=== PATIENT | male | born 1995 | race Caucasian/White ===

== ENCOUNTER 2017-04-15 08:57 | Emergency (ER) | payer OTHER ==
[~2017-04-15] VITALS: Ht 167.6 cm; Wt 78.1 kg
[2017-04-15 09:58] VITALS: BP 126/61
== END 2017-04-15 09:58 | disposition home or self-care (01) ==
LOC: ED 08:57
DX: J01.90 Acute sinusitis, unspecified (principal)
CPT/HCPCS: J1885

== ENCOUNTER 2017-08-02 17:14 | Emergency (ER) | payer OTHER ==
[2017-08-02 17:16] VITALS: BP 130/77
== END 2017-08-02 18:20 | disposition home or self-care (01) ==
LOC: ED 17:14
DX: J02.9 Acute pharyngitis, unspecified (principal); R50.9 Fever, unspecified

== ENCOUNTER 2017-10-03 21:00 | Emergency (ER) | payer OTHER ==
[~2017-10-03] VITALS: Ht 170.2 cm; Wt 83.9 kg
[2017-10-03 21:09] VITALS: BP 137/100; Ht 170.2 cm; Wt 83.9 kg
== END 2017-10-04 00:57 | disposition home or self-care (01) ==
LOC: ED 21:00
DX: R07.89 Other chest pain (principal)

== ENCOUNTER 2018-03-28 13:20 | Emergency (ER) | payer SELFPAY ==
[~2018-03-28] VITALS: Ht 170.2 cm; Wt 80.7 kg
[2018-03-28 13:28] VITALS: Ht 170.2 cm; Wt 80.7 kg
[2018-03-28 15:02] VITALS: BP 128/75
== END 2018-03-28 15:02 | disposition home or self-care (01) ==
LOC: ED 13:20
DX: S16.1XXA Strain of muscle, fascia and tendon at neck level, initial encounter (principal); S29.011A Strain of muscle and tendon of front wall of thorax, initial encounter; S76.012A Strain of muscle, fascia and tendon of left hip, initial encounter; V43.62XA Car passenger injured in collision with other type car in traffic accident, initial encounter; Y93.89 Activity, other specified; Y92.89 Other specified places as the place of occurrence of the external cause; Y99.8 Other external cause status
CPT/HCPCS: J1885; Q0092

== ENCOUNTER 2018-12-18 08:14 | Emergency (ER) | payer SELFPAY, MEDICAID | END 2018-12-18 11:12 | disposition home or self-care (01) | LOC: ED 08:14 ==